=== PATIENT | female | born 1965 | race Caucasian/White ===

== ENCOUNTER → 2016-08-21 | Outpatient (CLI) | payer MEDICARE ==
--- NOTE | 2016-08-21 15:25 | RADIOLOGY REPORT PS360 ---
CHEST(2 VIEWS-NOT PORTABLE) Ordering Physician: REFERRAL Patient Age: 50 years: Female HISTORY: PAIN, SWELLINGchest pain 10th rib area TECHNIQUE: PA and lateral chest COMPARISON two-view chest May 27, 2015 FINDINGS No significant interval change. No focal pneumonia. No pneumothorax no pleural effusion. Scoliosis of the spine again observed. Similar to previous study chest wall unremarkable. Bilateral Breast implants noted Heart normal size linda and mediastinal structures unchanged IMPRESSION: -------- Stable chest with nothing definite acute. Scoliosis again noted similar to previous 2016 CXR.
--- NOTE | 2016-08-22 16:21 | RADIOLOGY REPORT PS360 ---
[id number] VIEW Ordering Physician: REFERRAL Patient Age: 50 years: Female HISTORY: PAIN, SWELLING TECHNIQUE: Oblique views left RIBS FINDINGS Left ribs appear intact with no rib fracture evident. Left lung is well expanded and clear. Today's study is reviewed in conjunction with PA and lateral chest from today as well as previous chest film 05/27/2015. No significant new findings at the left lung There is scoliosis of the spine again noted similar to previous studies stable IMPRESSION: Left ribs intact. Left lung clear. No active disease Notable Scoliosis T-spine again observed. Stable
== END ==
LOC: RAD 12:25
DX: R07.81 Pleurodynia (principal)

== ENCOUNTER → 2017-02-06 | Outpatient (CLI) | payer MEDICARE ==
--- NOTE | 2017-02-07 08:15 | RADIOLOGY REPORT PS360 ---
HIP RT 2-3V W/PELVIS IF PERFOR COMPARISON: None HISTORY: Right hip pain TECHNIQUE: AP pelvis, cone-down AP and frog-leg views right hip FINDINGS: The iliac bones and pubic bones appear intact. Both hips are normally articulated with no evidence of fracture. There is minor asymmetrical joint space narrowing of the right hip joint with minor spurring of the acetabulum. The SI joints and symphysis pubis per normal. IMPRESSION: Minor osteoarthritic change right hip as noted.
== END ==
LOC: RAD 15:42
DX: M25.551 Pain in right hip (principal)